=== PATIENT | male | born 1945 | race Caucasian/White ===

== ENCOUNTER → 2019-07-24 | Outpatient (REF) | payer MEDICARE, OTHER ==
[2019-07-24 18:23] LABS: BLOOD UREA NITROGEN 18 MG/DL (7-18); CREATININE FOR GFR 0.96 MG/DL (0.70-1.30); GLOMERULAR FILTRATION RATE > 60.0 (>42)
== END ==
LOC: M LAB REF 17:03
PROVIDERS: ATTEND Physician Assistant
DX: R91.8 Other nonspecific abnormal finding of lung field (principal)

== ENCOUNTER → 2019-07-30 | Outpatient (CLI) | payer MEDICARE, OTHER, BC ==
[~2019-07-30] MED LIST: ISOVUE-370 76% 100ML VIAL (Q9967) As Ordered ONE
--- NOTE | 2019-07-30 09:22 | REP ---
CT pulmonary angiogram: With IV contrast. History: Dyspnea. Comparison studies: No comparison study. Contrast dose: 75 mL of Isovue [address] technique: Helical scanning is acquired and overlapping 1.5 mm and contiguous 3 mm axial images are reformatted. In addition, maximum intensity projection and multiplanar re-formation images are generated in sagittal and coronal imaging projections. CT pulmonary angiographic findings: There is good opacification of the pulmonary arterial tree. There is no evidence of intraluminal filling defect or vessel cutoff to suggest pulmonary embolus. The thoracic aorta shows no evidence of aneurysm or dissection. There is diffuse vascular calcification. There is coronary artery vascular calcification. Cardiomegaly is observed. There is no evidence of pleural or pericardial effusion. No adrenal lesion is seen. Visualized upper abdominal structures are unremarkable. There are scattered mediastinal lymph nodes which do not appear to be pathologically enlarged. The largest pretracheal lymph node measures 1.0 cm in short axis dimension. There is an AP window region mediastinal lymph node measuring 0.8 cm in short axis dimension. There are scattered periesophageal and subcarinal lymph nodes which are not enlarged individually. There are fairly advanced emphysematous changes in the upper lobes near the apices bilaterally. Subpleural peripheral fibrosis is seen in the lower lobes. No pulmonary nodule or mass lesion is observed. No bony destructive lesion is appreciated. Impression: No CT evidence of pulmonary embolus. There are fairly advanced COPD changes. There are scattered normal-sized mediastinal lymph nodes. Prior sternotomy with vascular calcification. Cardiomegaly. Electronically Signed by Pollo Hernandez MD 07/30/2019 01:36 P
== END ==
LOC: M RAD 08:18
PROVIDERS: ATTEND Physician Assistant
DX: J84.10 Pulmonary fibrosis, unspecified (principal); I51.7 Cardiomegaly; R06.00 Dyspnea, unspecified
CPT/HCPCS: 71275; Q9967

== ENCOUNTER 2020-12-29 08:16 | Day surgery (SDC) | payer MEDICARE, BC, OTHER ==
[~2020-12-29] VITALS: Ht 182.9 cm; Wt 85.3 kg
[~2020-12-29 08:16] MED LIST changes: +ALBUTEROL SULFATE 2.5 MG/0.5 ML INH NEB SOLN INH ONE; +ATOR40TA75 PO; +COMB0.2S OS; +ECOT81TA5 PO; +GLIM4TAB5 PO; -ISOVUE-370 76% 100ML VIAL (Q9967) As Ordered ONE; +LATA0.0015 OS; +LIDOCAINE 1% MDV 20ML VIAL SQ PRN; +LIDOCAINE 4% INJ 5ML AMP INH ONE; +LISI10TA22 PO; +LR 1,000 ML IV ONE; +METF500T13 PO; +METO1TAB33 PO; +SPIR12.9 INH; +TRAD5TAB PO; +XARE20TA PO
[2020-12-29] MEDS ORDERED: EPINEPHrine 1MG/10ML SYRINGE 1.5IN As Ordered ONE (08:21)
[2020-12-29] MEDS ORDERED: THROMBIN SOLN 5,000 UNITS VIAL As Ordered ONE (08:21)
[2020-12-29] MEDS ORDERED: CETACAINE SPRAY 5GM As Ordered ONE (08:21)
[2020-12-29] MEDS ORDERED: ONDANSETRON 4MG/2ML VIAL As Ordered ONE (09:13)
[2020-12-29] MEDS ORDERED: MIDAZOLAM INJ 2MG/2ML VIAL (J2250 PER 1MG) As Ordered ONE (09:13)
[2020-12-29] MEDS ORDERED: LIDOCAINE 2% 100MG/5ML SDV (FOR ANES.) As Ordered ONE (09:13)
[2020-12-29] MEDS ORDERED: propofoL 200 MG/20 ML VIAL As Ordered ONE (09:13)
[2020-12-29] MEDS ORDERED: ROCURONIUM BROMIDE 50 MG/5 ML VIAL As Ordered ONE (09:13)
[2020-12-29] MEDS ORDERED: dexameTHASONE 4 MG/ML 1ML VIAL (J1100 PER 1MG) As Ordered ONE (09:13)
[2020-12-29] MEDS ORDERED: fentaNYL 100 MCG/2 ML INJECTION (J3010) As Ordered ONE (09:13)
[2020-12-29] MEDS ORDERED: PHENYLephrine 500MCG 5ML (100MCG/ML) SYRINGE As Ordered ONE (10:54)
[2020-12-29] MEDS ORDERED: ePHEDrine SULFATE 25 MG/5 ML(5MG/ML) SYRINGE As Ordered ONE (11:05)
[2020-12-29] MEDS ORDERED: SUGAMMADEX SODIUM 500 MG/5 ML VIAL (BRIDION) As Ordered ONE (11:06)
[2020-12-29] MEDS ORDERED: fentaNYL 100 MCG/2 ML INJECTION (J3010) IV PRN (11:45)
[2020-12-29] MEDS ORDERED: ONDANSETRON 4MG/2ML VIAL IV PRN (11:45)
[2020-12-29] MEDS ORDERED: oxyCODONE 5MG TAB PO PRN (11:45)
[2020-12-29] MEDS ORDERED: LR 1,000 ML IV SCH (11:45)
--- NOTE | 2020-12-29 11:47 | REP ---
INDICATION: S/p bronch with biopsies RLL subcarinal and hilar. COMPARISON: 06/22/2019. TECHNIQUE: SINGLE PORTABLE AP VIEW OF THE CHEST WAS PERFORMED. FINDINGS: There is no pneumothorax. There is hazy atelectasis or infiltrate in each lung base. There underlying interstitial fibrotic changes bilaterally. The heart appears mildly enlarged. Multiple sternal wires are present. IMPRESSION: Hazy infiltrate or atelectasis in each lung base. No pneumothorax. <Electronically signed by Bao Armstrong > 12/29/20 [id number]
--- NOTE | 2020-12-29 12:35 | RO ---
OPERATIVE NOTE DATE OF OPERATION: 12/29/2020 PREOPERATIVE DIAGNOSIS: Abnormal chest CT and mediastinal hilar adenopathy. POSTOPERATIVE DIAGNOSIS: Abnormal chest CT and mediastinal hilar adenopathy. FINDINGS: 1. Smoker airways, otherwise as below. 2. Enlarged lymphadenopathy. PROCEDURE: Bronchoscopy with endobronchial ultrasound and fine needle aspiration. SURGEON: Dr. 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 ANESTHESIA: General. ESTIMATED BLOOD LOSS: Less than 5 mL. SPECIMENS OBTAINED: 1. FNA subcarinal node under EBUS. 2. FNA low right hilar node under EBUS. 3. BAL of right lower lobe. DESCRIPTION OF PROCEDURE: After informed consent was reviewed with the patient in the preoperative area, he was brought back to OR #8. The patient was intubated with an 8.5 endotracheal tube. The case was then handed over to me. Timeout was performed with two patient identifiers, identifying correct site, correct procedure. The 1T190 bronchoscope was then inserted into the trachea with Cetacaine spray. All airways were suctioned. There was minimal amount of secretion. No evidence of hemorrhage. Trachea was midline. Demetrice was slightly splayed. Right secondary demetrice was also splayed. RB1 through 10 was inspected without endobronchial lesion. There was minimal pitting and minimal banding. Right bronchus intermedius was fairly normal. I then inserted the bronchoscope into the left side LB1 through 10. It was fairly normal except for some increased vascularity of the airway wall. A picture was taken of this. There was no endobronchial lesion, just a general sense of increased blood vessels compared to normal mucosa. The bronchoscope was then retracted. Endobronchial ultrasound inserted. I approached the demetrice from the right side. There was a large subcarinal node measuring at least 1.5 cm. Samples of this were taken. The samples of this were quite necrotic. After adequate sampling of this area, I then proceeded down to the right hilum. Samples were taken of this area. However, it was noted that just below the right hilum, there was more of a francia mass and therefore this was sampled. That would be more distal going down into the right lower lobe with more of a right francia mass. Samples of this were taken. Similar necrotic tissue to what came out of the subcarinal node was found. Adequate samples were taken of this and then the endobronchial ultrasound was removed. I then performed BAL of the right lower lobe. All airways were suctioned. Hemostasis was assured and the bronchoscope was removed. The BAL was taken just at the takeoff of the anterior lateral and posterior segments and combined. This will be sent for cytology, AFB, fungal, and aerobic and anaerobic culture. The patient was then handed over to anesthesia. The patient was then extubated and is in recovery. Post-procedure chest x-ray is pending. There were no observed complications up until this point in time.
[2020-12-29 12:50] VITALS: BP 168/70
== END 2020-12-29 12:50 | disposition home or self-care (01) ==
LOC: M SDC 08:16
PROVIDERS: ATTEND Internal Medicine Pulmonary Disease
DX: C77.1 Secondary and unspecified malignant neoplasm of intrathoracic lymph nodes (principal); C34.31 Malignant neoplasm of lower lobe, right bronchus or lung; I48.91 Unspecified atrial fibrillation; I25.10 Atherosclerotic heart disease of native coronary artery without angina pectoris; Z98.61 Coronary angioplasty status; Z79.01 Long term (current) use of anticoagulants; Z87.891 Personal history of nicotine dependence; J44.9 Chronic obstructive pulmonary disease, unspecified; E11.9 Type 2 diabetes mellitus without complications; Z99.81 Dependence on supplemental oxygen; Z79.84 Long term (current) use of oral hypoglycemic drugs; I73.9 Peripheral vascular disease, unspecified; Z85.51 Personal history of malignant neoplasm of bladder; Z92.21 Personal history of antineoplastic chemotherapy; Z92.3 Personal history of irradiation
CPT/HCPCS: 31624; 31652; 71045; 87070; 87102; 87116; 87205; 87206; 88108; 88173; 88305; 88313; J1100; J2250; J2370; J2405; J3010

== ENCOUNTER → 2021-02-11 | Outpatient (REF) | payer MEDICARE, BC, OTHER ==
[~2021-02-11] MED LIST changes: -ALBUTEROL SULFATE 2.5 MG/0.5 ML INH NEB SOLN INH ONE; -LIDOCAINE 1% MDV 20ML VIAL SQ PRN; -LIDOCAINE 4% INJ 5ML AMP INH ONE; -LR 1,000 ML IV ONE
== END ==
LOC: M LAB REF 13:02
PROVIDERS: ATTEND Internal Medicine Pulmonary Disease
DX: C34.31 Malignant neoplasm of lower lobe, right bronchus or lung (principal)